=== PATIENT | male | born 1965 | race Caucasian/White ===

== ENCOUNTER 2023-09-29 22:26 | Emergency (ER) | payer SELFPAY ==
[~2023-09-29] VITALS: Ht 172.7 cm; Wt 77.0 kg
[2023-09-29 22:34] VITALS: BP 105/57; PULSE 69; RESP 18; TEMP 98.2; O2SAT 97
== END 2023-09-30 02:00 | disposition home or self-care (01) ==
LOC: ER 22:26
DX: R68.89 Other general symptoms and signs (principal); F31.9 Bipolar disorder, unspecified; I10 Essential (primary) hypertension; F12.10 Cannabis abuse, uncomplicated; F15.10 Other stimulant abuse, uncomplicated
CPT/HCPCS: 99283

== ENCOUNTER 2024-08-05 05:47 | Inpatient (IN) | payer MEDICAID ==
[2024-08-05] VITALS (46 sets, daily range): BP systolic 106–148; BP diastolic 67–107; PULSE 60–116; RESP 14–26; TEMP 36.6–36.8; O2SAT 89–100
[~2024-08-05] VITALS: Ht 175.3 cm; Wt 79.6 kg
[2024-08-05] MEDS: METHYLPREDNISOLONE SOD SUCC 125MG/2ML (ACT-O-VIAL) IV STA (06:08)
[2024-08-05] MEDS: IPRATROPIUM BROMIDE (0.02%) 0.5MG/2.5ML NEB HHN STA (06:12)
[2024-08-05] MEDS: ALBUTEROL (0.083%) 2.5MG/3ML NEB HHN SCH (06:12)
[2024-08-05] MEDS ORDERED: AMIODARONE 360MG/200ML 200 ML IV SCH (06:15)
[2024-08-05] MEDS: AMIODARONE 150MG/100ML D5W 100 ML IV ONE (06:17)
[2024-08-05 06:35] LABS: HEMATOCRIT. 43.3 % (42.0-52.0); HEMOGLOBIN. 14.3 g/dL (14.0-18.0); MEAN CORPUSCULAR HEMOGLOBIN 31.2 pg (28.0-32.0); MEAN CORPUSCULAR VOLUME 94.6 fL (80.0-94.0); MEAN PLATELET VOLUME 9.1 fl (7.4-10.4); PLATELET 235 x1000/uL (130-400); RED BLOOD CELL COUNT 4.58 mill/uL (4.7-6.1); RED CELL DISTRIBUTION WIDTH 14.3 % (11.6-14.6); WHITE BLOOD COUNT 16.3 x1000/uL (4.5-11.0)
[2024-08-05 06:37] LABS: DIFFERENTIAL COMMENT 1
[2024-08-05] MEDS: MAGNESIUM 2 G PREMIX 50 ML IV ONE (06:43)
[2024-08-05 06:44] LABS: CHLORIDE 104 mEq/L (98-107); INR 0.9; PARTIAL THROMBOPLASTIN TIME 28.8 sec (23.4-31.0); POTASSIUM 4.1 mEq/L (3.5-5.1); PROTHROMBIN TIME 10.1 sec (9.6-11.0); SODIUM 138 mEq/L (136-145)
[2024-08-05 06:45] LABS: CALCIUM 9.4 mg/dL (8.7-10.4); CARBON DIOXIDE 23 mEq/L (21-32)
[2024-08-05 06:50] LABS: CREATININE 0.9 mg/dL (0.6-1.3); GLUCOSE 149 mg/dL (70-105); UREA NITROGEN BLOOD 15 mg/dL (9-23)
[2024-08-05 06:58] LABS: PLATELET ESTIMATE NORMAL
[2024-08-05] MEDS: SODIUM CHLORIDE 0.9% 1,000 ML IV ONE (07:00)
[2024-08-05 07:10] LABS: LACTIC ACID 4.4 mmol/L (0.4-2.0)
[2024-08-05 07:16] LABS: TROPONIN I HIGH SENSITIVITY 1002 ng/L (3.0-53)
[2024-08-05 07:29] LABS: CLARITY URINE CLEAR (CLEAR); COLOR URINE DARK YELLOW (YELLOW); GLUCOSE URINE NEGATIVE (NEGATIVE); KETONES URINE NEGATIVE (NEGATIVE); LEUKOCYTE ESTERASE URINE TRACE (NEGATIVE); NITRITE URINE NEGATIVE (NEGATIVE); OCCULT BLOOD URINE NEGATIVE (NEGATIVE); PH URINE 5.5 (4.5-8.0); PROTEIN URINE 4+ (NEGATIVE); SPECIFIC GRAVITY URINE 1.038 (1.005-1.030)
[2024-08-05 07:42] LABS: BACTERIA URINE 1+; RBC URINE NONE SEEN /hpf (0-2); SQUAMOUS EPITHELIAL CELL URINE NONE SEEN /lpf (RARE/1+); WBC URINE 0-2 /hpf (0-2); YEAST URINE NONE SEEN
[2024-08-05] MEDS: HEPARIN 5000 UNITS/ML VIAL IV SCH ×2 (07:45→14:01)
[2024-08-05] MEDS ORDERED: HEPARIN 25,000 UNITS PREMIX 250 ML IV PRN (07:45)
[2024-08-05] MEDS ORDERED: HEPARIN 5000 UNITS/ML VIAL IV PRN (07:45)
[2024-08-05] MEDS: MIDAZOLAM HCL 2 MG/2 ML VIAL IV ONE (07:59)
[2024-08-05] MEDS: FENTANYL CITRATE/PF 50MCG/ML 2ML VIAL IV ONE (07:59)
[2024-08-05 09:07] LABS: TROPONIN I HIGH SENSITIVITY 867 ng/L (3.0-53)
[2024-08-05] MEDS: SODIUM CHLORIDE 0.45% 1,000 ML IV SCH (09:15)
[2024-08-05] MEDS ORDERED: SODIUM CHLORIDE 0.9% 1,000 ML IV SCH (09:15)
[2024-08-05] MEDS ORDERED: LORAZEPAM 2MG/ML INJ IV PRN (09:15)
[2024-08-05] MEDS ORDERED: ONDANSETRON HCL 4MG/2ML INJ IV PRN (09:15)
[2024-08-05] MEDS ORDERED: DIPHENHYDRAMINE 50MG/ML VIAL IV PRN (09:15)
[2024-08-05] MEDS ORDERED: IPRATROPIUM/ALBUTEROL 0.5-3(2.5)MG/3ML NEB HHN PRN (09:15)
[2024-08-05] MEDS ORDERED: DOCUSATE SODIUM 100MG CAPSULE PO PRN (09:15)
[2024-08-05] MEDS ORDERED: CLONIDINE 0.1MG TABLET PO PRN (09:15)
[2024-08-05] MEDS ORDERED: GUAIFENESIN 200MG/10ML SUGAR FREE UDC PO PRN (09:15)
[2024-08-05 10:01] LABS: BG BASE EXCESS -3.1 mmol/L (-2.0-3.0); BG CARBOXYHEMOGLOBIN 1.2 % (0.5-1.5); BG DEOXYHEMOGLOBIN 5.1 % (0.0-5.0); BG FRACTION INSPIRED OXYGEN 34; BG HCO3 ACT 19.2 mmol/L (21.0-28.0); BG METHEMOGLOBIN 0.3 % (0.5-1.5); BG OXYGEN SATURATION 94.8 % (94.0-98.0); BG OXYHEMOGLOBIN 93.4 % (94.0-98.0); BG PCO2 27.6 mmHg (35.0-48.0); BG PH 7.461 (7.350-7.450); BG PO2 70.1 mmHg (83.0-108.0); BG SAMPLE SITE RIGHT BRACHIAL; BG TOTAL HEMOGLOBIN 14.1 g/dL (13.5-17.5); BG VENT MODE NASAL CANNULA
[2024-08-05] MEDS: AMIODARONE 360MG/200ML 200 ML IV SCH (12:28)
[2024-08-05] MEDS: ASPIRIN 81MG TABLET PO SCH (14:02)
[2024-08-05] MEDS: HEPARIN 25,000 UNITS PREMIX 250 ML IV PRN ×2 (14:22→21:26)
[2024-08-05 14:30] LABS: *AMPHETAMINES SCREEN URINE NEGATIVE (NEGATIVE); *BENZODIAZEPINES SCREEN URINE NEGATIVE (NEGATIVE)
[2024-08-05 14:31] LABS: *BARBITURATES SCREEN URINE NEGATIVE (NEGATIVE); *COCAINE SCREEN URINE NEGATIVE (NEGATIVE); CANNABINOID URINE SCREEN PRESUMPTIVE POSITIVE (NEGATIVE); ECSTASY MDMA SCREEN URINE CONF.TEST INDICATED (NEGATIVE); METHADONE URINE SCREEN NEGATIVE (NEGATIVE); OPIATES URINE SCREEN NEGATIVE (NEGATIVE); PHENCYCLIDINE URINE SCREEN NEGATIVE (NEGATIVE)
[2024-08-05] MEDS: DOXYCYCLINE 100MG/100ML 100 ML IV SCH (14:47)
[2024-08-05] MEDS: CEFTRIAXONE 2GM/50ML 50 ML IV NR (14:47)
[2024-08-05 16:17] LABS: CREATINE KINASE 146 IU/L (46-171)
[2024-08-05 16:26] LABS: TROPONIN I HIGH SENSITIVITY 1322 ng/L (3.0-53)
[2024-08-05] MEDS: ATORVASTATIN CALCIUM 40MG TABLET PO SCH (21:32)
[2024-08-05] MEDS: HEPARIN 5000 UNITS/ML VIAL IV PRN (21:32)
[2024-08-05 23:16] LABS: CREATINE KINASE 139 IU/L (46-171)
[2024-08-05 23:18] LABS: TROPONIN I HIGH SENSITIVITY 1442 ng/L (3.0-53)
[2024-08-06] VITALS (83 sets, daily range): BP systolic 98–149; BP diastolic 67–103; PULSE 53–84; RESP 11–33; TEMP 36.4–36.9; O2SAT 92–99
[2024-08-06 03:23] LABS: BASOPHILS % 0.4 % (0.0-2.0); EOSINOPHILS % 1.2 % (0.0-5.0); HEMATOCRIT. 38.1 % (42.0-52.0); HEMOGLOBIN. 12.7 g/dL (14.0-18.0); LYMPHOCYTES % 24.3 % (20.0-50.0); MEAN CORPUSCULAR HEMOGLOBIN 30.8 pg (28.0-32.0); MEAN CORPUSCULAR HGB CONC 33.3 g/dL (31.0-37.0); MEAN CORPUSCULAR VOLUME 92.5 fL (80.0-94.0); MEAN PLATELET VOLUME 8.9 fl (7.4-10.4); MONOCYTES % 4.6 % (2.0-8.0); NEUTROPHILS % 69.5 % (40.0-76.0); PLATELET 151 x1000/uL (130-400); RED BLOOD CELL COUNT 4.12 mill/uL (4.7-6.1); RED CELL DISTRIBUTION WIDTH 14.1 % (11.6-14.6); WHITE BLOOD COUNT 9.7 x1000/uL (4.5-11.0)
[2024-08-06 03:55] LABS: CARBON DIOXIDE 25 mEq/L (21-32); CHLORIDE 104 mEq/L (98-107); POTASSIUM 3.8 mEq/L (3.5-5.1)
[2024-08-06 03:56] LABS: SODIUM 138 mEq/L (136-145)
[2024-08-06 03:59] LABS: CREATININE 0.7 mg/dL (0.6-1.3); GLUCOSE 100 mg/dL (70-105)
[2024-08-06 04:01] LABS: ALANINE AMINOTRANSFERASE 10 IU/L (10-49); ALBUMIN 3.8 g/dL (3.2-4.8); ASPARTATE AMINOTRANSFERASE 19 IU/L (<34); BILIRUBIN DIRECT 0.1 mg/dL (<=3.0); CHOLESTEROL 188 mg/dL (<200)
[2024-08-06 04:02] LABS: LDL CHOLESTEROL 124 mg/dL (5-100); TRIGLYCERIDE 101 mg/dL (0-150); UREA NITROGEN BLOOD 20 mg/dL (9-23)
[2024-08-06 04:03] LABS: HDL CHOLESTEROL 48 mg/dL (>55)
[2024-08-06 04:04] LABS: BILIRUBIN TOTAL 0.5 mg/dL (0.1-1.0)
[2024-08-06 04:06] LABS: THYROID STIMULATING HORMONE 1.04 uIU/mL (0.55-4.78)
[2024-08-06] MEDS: ASPIRIN 81MG EC TABLET PO SCH (12:17)
[2024-08-06] MEDS: HEPARIN 5000 UNITS/ML VIAL IV PRN (13:56)
[2024-08-06] MEDS: ACETAMINOPHEN 325MG TABLET PO PRN (19:05)
[2024-08-06 22:28] LABS: BASOPHILS % 0.6 % (0.0-2.0); EOSINOPHILS % 2.8 % (0.0-5.0); HEMATOCRIT. 37.2 % (42.0-52.0); HEMOGLOBIN. 12.2 g/dL (14.0-18.0); LYMPHOCYTES % 34.5 % (20.0-50.0); MEAN CORPUSCULAR HEMOGLOBIN 30.9 pg (28.0-32.0); MEAN CORPUSCULAR HGB CONC 32.8 g/dL (31.0-37.0); MEAN CORPUSCULAR VOLUME 94.3 fL (80.0-94.0); MEAN PLATELET VOLUME 8.9 fl (7.4-10.4); NEUTROPHILS % 55.1 % (40.0-76.0); PLATELET 169 x1000/uL (130-400); RED BLOOD CELL COUNT 3.94 mill/uL (4.7-6.1); RED CELL DISTRIBUTION WIDTH 14.1 % (11.6-14.6); WHITE BLOOD COUNT 5.3 x1000/uL (4.5-11.0)
[2024-08-07] VITALS (75 sets, daily range): BP systolic 103–145; BP diastolic 54–107; PULSE 52–77; RESP 11–24; TEMP 36.4–36.9; O2SAT 91–99
[2024-08-07 04:57] LABS: BASOPHILS % 0.6 % (0.0-2.0); HEMATOCRIT. 38.7 % (42.0-52.0); HEMOGLOBIN. 12.6 g/dL (14.0-18.0); LYMPHOCYTES % 38.3 % (20.0-50.0); MEAN CORPUSCULAR HEMOGLOBIN 30.2 pg (28.0-32.0); MEAN CORPUSCULAR HGB CONC 32.6 g/dL (31.0-37.0); MEAN CORPUSCULAR VOLUME 92.7 fL (80.0-94.0); MONOCYTES % 6.7 % (2.0-8.0); NEUTROPHILS % 50.4 % (40.0-76.0); PLATELET 167 x1000/uL (130-400); RED BLOOD CELL COUNT 4.18 mill/uL (4.7-6.1); RED CELL DISTRIBUTION WIDTH 14.1 % (11.6-14.6); WHITE BLOOD COUNT 5.5 x1000/uL (4.5-11.0)
[2024-08-07 05:07] LABS: CHLORIDE 106 mEq/L (98-107); POTASSIUM 3.8 mEq/L (3.5-5.1); SODIUM 140 mEq/L (136-145)
[2024-08-07 05:08] LABS: CARBON DIOXIDE 21 mEq/L (21-32)
[2024-08-07 05:09] LABS: CALCIUM 8.6 mg/dL (8.7-10.4)
[2024-08-07 05:13] LABS: CREATININE 0.6 mg/dL (0.6-1.3); GLUCOSE 96 mg/dL (70-105)
[2024-08-07 05:14] LABS: UREA NITROGEN BLOOD 16 mg/dL (9-23)
[2024-08-07] MEDS: NITROGLYCERIN SPRAY/4.9GM CAN TL ONE (11:18)
[2024-08-07] MEDS: AMIODARONE 200MG TABLET PO SCH (14:47)
[2024-08-07] MEDS: TAMSULOSIN HCL 0.4MG SR CAPSULE PO SCH (17:06)
[2024-08-07] MEDS: PANTOPRAZOLE SODIUM 40 MG/VIAL IV SCH (20:20)
[2024-08-07] MEDS ORDERED: HEPARIN 25,000 UNITS PREMIX 250 ML IV SCH (22:15)
[2024-08-07] MEDS: DEXT 5%/0.45% NACL 1000ML 1,000 ML IV SCH (22:51)
[2024-08-08] VITALS (33 sets, daily range): BP systolic 104–158; BP diastolic 51–98; PULSE 49–74; RESP 0–26; TEMP 36.4–36.8; O2SAT 89–99
[2024-08-08 06:34] LABS: BASOPHILS % 0.5 % (0.0-2.0); EOSINOPHILS % 3.6 % (0.0-5.0); HEMATOCRIT. 38.1 % (42.0-52.0); HEMOGLOBIN. 13.2 g/dL (14.0-18.0); MEAN CORPUSCULAR HEMOGLOBIN 32.2 pg (28.0-32.0); MEAN CORPUSCULAR HGB CONC 34.7 g/dL (31.0-37.0); MEAN PLATELET VOLUME 8.3 fl (7.4-10.4); MONOCYTES % 7.5 % (2.0-8.0); NEUTROPHILS % 56.4 % (40.0-76.0); PLATELET 178 x1000/uL (130-400); RED CELL DISTRIBUTION WIDTH 13.6 % (11.6-14.6); WHITE BLOOD COUNT 5.2 x1000/uL (4.5-11.0)
[2024-08-08 06:51] LABS: CARBON DIOXIDE 25 mEq/L (21-32); CHLORIDE 106 mEq/L (98-107); POTASSIUM 3.8 mEq/L (3.5-5.1); SODIUM 140 mEq/L (136-145)
[2024-08-08 06:53] LABS: CALCIUM 8.7 mg/dL (8.7-10.4)
[2024-08-08 06:56] LABS: CREATININE 0.7 mg/dL (0.6-1.3)
[2024-08-08 06:57] LABS: GLUCOSE 107 mg/dL (70-105); UREA NITROGEN BLOOD 11 mg/dL (9-23)
[2024-08-08] MEDS: ENOXAPARIN 80MG/0.8ML SYR SUBCUT SCH (09:30)
[2024-08-08] MEDS ORDERED: VERAPAMIL HCL 2.5 MG/1 ML 2ML VIAL IV ONE (11:29)
[2024-08-08] MEDS ORDERED: LIDOCAINE HCL 1% 20ML VIAL ONE (11:29)
[2024-08-08] MEDS ORDERED: IODIXANOL 320MG/ML 100 ML BOTTLE IV ONE ×2 (11:29→13:15)
[2024-08-08] MEDS ORDERED: MIDAZOLAM HCL 2 MG/2 ML VIAL ONE ×2 (11:36→12:59)
[2024-08-08] MEDS ORDERED: DIPHENHYDRAMINE 50MG/ML VIAL ONE (11:36)
[2024-08-08] MEDS ORDERED: FENTANYL CITRATE/PF 50MCG/ML 2ML VIAL ONE ×2 (11:37→13:00)
[2024-08-08] MEDS ORDERED: HEPARIN 1000 UNITS/ML 10ML ONE (11:37)
[2024-08-08] MEDS ORDERED: CLOPIDOGREL 75MG TABLET ONE (13:36)
[2024-08-08] MEDS ORDERED: ACETAMINOPHEN 325MG TABLET PO PRN (14:30)
[2024-08-08] MEDS: ACETAMINOPHEN 325MG TABLET PO PRN (14:30)
[2024-08-08] MEDS ORDERED: ATROPINE SULFATE 1MG/10ML SYR IV PRN (14:30)
[2024-08-09] VITALS: BP 128/76; PULSE 53; RESP 19; TEMP 36.6; O2SAT 97
[2024-08-09 04:00] VITALS: BP 128/74; PULSE 60; RESP 14; TEMP 36.3; O2SAT 97
[2024-08-09 08:00] VITALS: BP 121/72; PULSE 55; RESP 16; TEMP 36.6; O2SAT 97
[2024-08-09] MEDS: CLOPIDOGREL 75MG TABLET PO SCH (08:29)
[2024-08-09 09:11] LABS: CHLORIDE 107 mEq/L (98-107); SODIUM 141 mEq/L (136-145)
[2024-08-09 09:12] LABS: CALCIUM 8.8 mg/dL (8.7-10.4); CARBON DIOXIDE 25 mEq/L (21-32)
[2024-08-09 09:17] LABS: CREATININE 0.6 mg/dL (0.6-1.3); GLUCOSE 100 mg/dL (70-105); UREA NITROGEN BLOOD 9 mg/dL (9-23)
[2024-08-09 09:31] LABS: BASOPHILS % 0.7 % (0.0-2.0); EOSINOPHILS % 4.3 % (0.0-5.0); HEMATOCRIT. 38.5 % (42.0-52.0); HEMOGLOBIN. 12.8 g/dL (14.0-18.0); MEAN CORPUSCULAR HEMOGLOBIN 30.4 pg (28.0-32.0); MEAN CORPUSCULAR HGB CONC 33.3 g/dL (31.0-37.0); MEAN CORPUSCULAR VOLUME 91.3 fL (80.0-94.0); MEAN PLATELET VOLUME 8.6 fl (7.4-10.4); MONOCYTES % 7.4 % (2.0-8.0); NEUTROPHILS % 62.6 % (40.0-76.0); PLATELET 203 x1000/uL (130-400); RED BLOOD CELL COUNT 4.21 mill/uL (4.7-6.1)
[2024-08-09] MEDS: ENOXAPARIN 40MG/0.4ML SYR SUBCUT SCH (11:00)
[2024-08-09] MEDS: EMPAGLIFLOZIN 10MG TABLET PO SCH (12:05)
[2024-08-09] MEDS: LOSARTAN 25 MG TABLET PO SCH (12:05)
[2024-08-09] MEDS: CARBAMAZEPINE 200MG TABLET PO SCH (12:07)
[2024-08-09 12:29] VITALS: BP 133/88; PULSE 66; RESP 18; TEMP 36.6; O2SAT 95
[2024-08-09] MEDS: METOPROLOL SUCCINATE 50MG ER TABLET PO SCH (12:54)
[2024-08-09 16:25] VITALS: BP 122/89; PULSE 65; RESP 20; TEMP 36.4; O2SAT 96
[2024-08-09] MEDS ORDERED: ASPI-1406 PO (17:15)
[2024-08-09] MEDS ORDERED: METO25TA6 PO (17:15)
[2024-08-09] MEDS ORDERED: AMIO100T4 PO (17:15)
[2024-08-09] MEDS ORDERED: SPIR25TA6 PO (17:15)
[2024-08-09] MEDS ORDERED: CLOP-31 PO (17:15)
[2024-08-09] MEDS ORDERED: ATOR40TA70 PO (17:15)
[2024-08-09] MEDS ORDERED: EMPA10TA PO (17:15)
[2024-08-09 20:00] VITALS: BP 153/84; PULSE 58; RESP 16; TEMP 36.4; O2SAT 97
[2024-08-09] MEDS: MAGNESIUM/ALUMINUM HYDROXIDE/SIMETHICONE 30ML UDC PO PRN (23:08)
[2024-08-10] VITALS (7 sets, daily range): BP systolic 128–136; BP diastolic 70–88; PULSE 55–66; RESP 13–21; TEMP 36.2–36.6; O2SAT 95–98
[2024-08-10] MEDS: PANTOPRAZOLE 40MG DR TABLET PO SCH (06:37)
[2024-08-10] MEDS: CEFTRIAXONE 2GM/50ML 50 ML IV ONE (10:29)
[2024-08-10] MEDS: IOHEXOL-350 100 ML BOTTLE ONE (10:29)
[2024-08-11] VITALS: BP 106/63; PULSE 55; RESP 15; TEMP 36.2; O2SAT 98
[2024-08-11 04:00] VITALS: BP 107/56; PULSE 49; RESP 14; TEMP 36.8; O2SAT 96
[2024-08-11 08:00] VITALS: BP 134/101; PULSE 63; RESP 18; TEMP 36.4; O2SAT 93
[2024-08-11 09:01] VITALS: PULSE 62
== END 2024-08-11 14:52 | disposition home or self-care (01) | DRG 175 ==
LOC: ER 06:06 → EDBEDREQ 08:49 → EDBEDREQTM 08:49 → EDBEDREQSVC 10:51 → MICUSO 11:51 → 5EST 08-08 09:14 → 3WST 08-08 15:38
PROVIDERS: ADMIT Hospitalist; ATTEND Hospitalist
PROC: 5A2204Z Restoration of Cardiac Rhythm, Single (ICD-10-PCS; principal; 2024-08-05)
PROC: 027034Z Dilation of Coronary Artery, One Artery with Drug-eluting Intraluminal Device, Percutaneous Approach (ICD-10-PCS; 2024-08-08)
PROC: B211YZZ Fluoroscopy of Multiple Coronary Arteries using Other Contrast (ICD-10-PCS; 2024-08-08)
DX: I11.0 Hypertensive heart disease with heart failure (principal); E87.20 Acidosis, unspecified; I21.A1 Myocardial infarction type 2; I42.0 Dilated cardiomyopathy; I47.20 Ventricular tachycardia, unspecified; I49.3 Ventricular premature depolarization; Z20.822 Contact with and (suspected) exposure to COVID-19; R80.9 Proteinuria, unspecified; I50.21 Acute systolic (congestive) heart failure; N39.0 Urinary tract infection, site not specified; N40.0 Benign prostatic hyperplasia without lower urinary tract symptoms; I25.10 Atherosclerotic heart disease of native coronary artery without angina pectoris; F12.10 Cannabis abuse, uncomplicated; R73.9 Hyperglycemia, unspecified; F17.210 Nicotine dependence, cigarettes, uncomplicated; J44.9 Chronic obstructive pulmonary disease, unspecified; I45.4 Nonspecific intraventricular block; I25.2 Old myocardial infarction; Z59.01 Sheltered homelessness; Z79.02 Long term (current) use of antithrombotics/antiplatelets; Z79.82 Long term (current) use of aspirin
CPT/HCPCS: 36415; 36600; 71045; 75571; 80048; 80061; 80076; 80305; 81003; 82375; 82550; 82805; 83036; 83605; 83880; 84145; 84443; 84484; 85025; 85347; 87426; 92928; 92960; 93005; 93306; 93454; 93571; 93970; 97162; 97166; 99152; 99291; A4606; C1725; C1769; C1887; C1893; J0282; J0696; J1200; J1644; J1650; J2250; J2470; J2919; J3010; J3475; J3490; J7030; Q9967